=== PATIENT | female | born 1990 | race Caucasian/White ===

== ENCOUNTER 2021-09-05 12:11 | Emergency (ER) | payer MEDICAID ==
[~2021-09-05] VITALS: Ht 172.7 cm; Wt 81.6 kg
[2021-09-05] MEDS ORDERED: AMOX-277 PO (14:24)
[2021-09-05] MEDS ORDERED: PRED20TA2 PO (14:24)
[2021-09-05 14:35] VITALS: BP 102/68
== END 2021-09-05 14:38 | disposition home or self-care (01) ==
LOC: ER 12:11
DX: U07.1 COVID-19 (principal); J06.9 Acute upper respiratory infection, unspecified
CPT/HCPCS: 36415; 71045

== ENCOUNTER 2023-07-14 06:21 | Emergency (ER) | payer MEDICAID ==
[~2023-07-14] VITALS: Ht 170.2 cm; Wt 70.0 kg
[~2023-07-14 06:21] MED LIST: AMOX875T4 PO; PRED20TA2 PO
[2023-07-14] MEDS: HYDROcodone-ACET 10/325MG TAB PO ONE (07:14)
[2023-07-14 07:19] LABS: Urine Bacteria FEW /hpf (None Seen); Urine Blood 3+ /uL (Negative); Urine Budding Yeast OCCASIONAL /hpf (None Seen); Urine Clarity Turbid (Clear); Urine Color Colorless (Yellow); Urine Protein, UAD TRACE (Negative); Urine Specific Gravity 1.017 (1.001-1.035); Urine Urobilinogen Normal (Negative); Urine WBC 5 /hpf (0 - 5); Urine pH 5.5 (5.0-9.0)
[2023-07-14 07:21] VITALS: BP 126/86; TEMP 98.2
[2023-07-14 08:43] VITALS: PULSE 75; RESP 19; O2SAT 98
== END 2023-07-14 08:48 | disposition home or self-care (01) ==
LOC: ER 06:21
DX: N92.0 Excessive and frequent menstruation with regular cycle (principal); Z79.899 Other long term (current) drug therapy
CPT/HCPCS: 76856; 81001

== ENCOUNTER 2024-04-01 08:08 | Emergency (ER) | payer MEDICAID ==
[~2024-04-01] VITALS: Ht 170.2 cm; Wt 70.0 kg
[2024-04-01 08:48] VITALS: BP 112/66; PULSE 88; RESP 21; TEMP 98; O2SAT 100
[2024-04-01] MEDS ORDERED: MECL12.586 PO (08:59)
[2024-04-01] MEDS ORDERED: IBUP-1455 PO (08:59)
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
== END 2024-04-01 09:14 | disposition home or self-care (01) ==
LOC: ER 08:08
DX: M25.512 Pain in left shoulder (principal); R51.9 Headache, unspecified; Z79.1 Long term (current) use of non-steroidal anti-inflammatories (NSAID); Z79.899 Other long term (current) drug therapy; Z79.52 Long term (current) use of systemic steroids; V89.2XXA Person injured in unspecified motor-vehicle accident, traffic, initial encounter; Y93.89 Activity, other specified; Y92.89 Other specified places as the place of occurrence of the external cause; Y99.8 Other external cause status